=== PATIENT | male | born 1960 | race Hispanic/Latino ===

== ENCOUNTER 2017-09-10 06:52 | Emergency (ER) | payer OTHER ==
[~2017-09-10] VITALS: Ht 165.1 cm; Wt 93.6 kg
[2017-09-10] MEDS ORDERED: BELLADONNA ALK/PHENOBARBITAL 5 ML UDC PO ONE (07:30)
[2017-09-10] MEDS ORDERED: MAGNESIUM/ALUMINUM/SIMETHICONE 30 ML UDC PO ONE (07:30)
[2017-09-10] MEDS ORDERED: ONDANSETRON HCL 4 MG ORAL DISINTEGRATING TAB PO ONE (07:30)
[2017-09-10] MEDS ORDERED: LIDOCAINE VISC 2% SOLN 15 ML UDC PO ONE (07:30)
[2017-09-10] MEDS ORDERED: ZOFRAN ODT4 MG PO (08:02)
[2017-09-10] MEDS ORDERED: RANITIDINE HCL300 MG PO (08:04)
== END 2017-09-10 08:20 | disposition home or self-care (01) ==
LOC: FSED 06:52
DX: R05 Cough (principal); R11.2 Nausea with vomiting, unspecified